=== PATIENT | female | born 1980 | race American Indian/Alaskan Native ===

== ENCOUNTER 2017-11-04 08:52 | Emergency (ER) | payer MEDICARE, MEDICAID ==
[2017-11-04 08:53] VITALS: BMI 42.4
[2017-11-04 09:07] VITALS: BP 134/88; PULSE 85; RESP 16; TEMP 98.6; O2SAT 98
--- NOTE | 2017-11-04 09:30 | C.PDOC ---
History Of Present Illness Pt c/o hoarse voice. Time Seen by Provider: 11/04/17 09:16 Chief Complaint (Nursing): ENT Problem History Per: Patient Onset/Duration Of Symptoms: Days (about 3 months) Current Symptoms Are (Timing): Still Present Severity: Moderate Past Medical History Reviewed: Historical Data, Nursing Documentation, Vital Signs Vital Signs: Last Vital Signs Temp 98.6 F 11/04/17 09:02 Pulse 85 11/04/17 09:02 Resp 16 11/04/17 09:02 BP 134/88 11/04/17 09:02 Pulse Ox 98 11/04/17 09:02 - Medical History PMH: Anxiety Surgical History: No Surg Hx Family History: States: Unknown Family Hx - Social History Hx Tobacco Use: Yes Hx Alcohol Use: Yes Hx Substance Use: No - Immunization History Hx Tetanus Toxoid Vaccination: No Hx Influenza Vaccination: No Hx Pneumococcal Vaccination: No Review Of Systems Except As Marked, All Systems Reviewed And Found Negative. Constitutional: Negative for: Fever, Weakness ENT: Positive for: Nose Congestion (sneezing). Negative for: Throat Pain Cardiovascular: Negative for: Chest Pain Respiratory: Negative for: Cough, Shortness of Breath Gastrointestinal: Negative for: Vomiting, Abdominal Pain Musculoskeletal: Negative for: Neck Pain Skin: Negative for: Rash Neurological: Negative for: Weakness, Numbness Physical Exam - Physical Exam Appears: Non-toxic, No Acute Distress Skin: Normal Color, Warm, Dry, No Rash Head: Atraumatic, Normacephalic Eye(s): bilateral: Normal Inspection, PERRL, EOMI Throat: Normal Neck: Normal ROM, Supple Lymphatic: No Adenopathy Cardiovascular: Rhythm Regular Respiratory: Normal Breath Sounds, No Accessory Muscle Use, No Stridor, No Wheezing Extremity: Normal ROM Neurological/Psych: Oriented x3, Normal Motor, Normal Sensation, Other (Voice slightly hoarse) ED Course And Treatment O2 Sat by Pulse Oximetry: 98 Pulse Ox Interpretation: Normal Disposition Counseled Patient/Family Regarding: Diagnosis, Need For Followup, Rx Given, Smoking Cessation - Disposition Referrals: Robert Joseph MD [Staff Provider] - jR Griffin MD [Medical Doctor] - Disposition: HOME/ ROUTINE Disposition Time: 09:30 Condition: STABLE Additional Instructions: Follow up with an ENT specialist for further evaluation and treatment. Return to the ER if you develop trouble breathing or swallowing, worsening of symptoms or if you have any other concerns. Prescriptions: Loratadine [Claritin] 10 mg PO DAILY #30 tab predniSONE [predniSONE Tab] 2 tab PO DAILY #10 tab Instructions: Laryngitis (DC) Forms: [facility] (Honduran) - Clinical Impression Clinical Impression: Hoarseness of voice, Seasonal allergies
== END 2017-11-04 09:39 | disposition home or self-care (01) ==
LOC: C.ER 08:52
DX: R49.0 Dysphonia (principal); J30.2 Other seasonal allergic rhinitis; F17.210 Nicotine dependence, cigarettes, uncomplicated